=== PATIENT | female | born 1990 | race African-American/Black ===

== ENCOUNTER 2021-08-22 21:21 | Emergency (ER) | payer OTHER ==
[~2021-08-22] VITALS: Ht 160 cm; Wt 71.2 kg
[2021-08-23 00:18] VITALS: BP 121/75; TEMP 98.5
== END 2021-08-23 00:18 | disposition home or self-care (01) ==
LOC: ED 21:21
DX: R51.9 Headache, unspecified (principal); I10 Essential (primary) hypertension
CPT/HCPCS: 36415; 81025; 96372; 99283; J1885

== ENCOUNTER 2022-03-29 14:03 | Outpatient (CLI) | payer OTHER ==
[2022-03-29 14:25] LABS: PLATELET COUNT 205 K/uL (152-353)
[2022-03-29 14:34] LABS: POTASSIUM 3.8 mmol/L (3.6-5.2)
== END 2022-03-29 19:03 | disposition home or self-care (01) ==
LOC: RESP 14:03
PROVIDERS: ATTEND Nurse Practitioner Family
DX: R07.89 Other chest pain (principal)
CPT/HCPCS: 36415; 80053; 82553; 84484; 85027; 85379; 93005

== ENCOUNTER 2023-03-27 10:08 | Emergency (ER) | payer OTHER ==
[~2023-03-27] VITALS: Ht 160 cm; Wt 48.1 kg
[2023-03-27 10:20] VITALS: TEMP 98.5
[2023-03-27 11:14] LABS: PLATELET COUNT 210 K/uL (152-353)
[2023-03-27 11:22] LABS: POTASSIUM 3.6 mmol/L (3.6-5.2)
[2023-03-27 12:38] VITALS: BP 132/98
== END 2023-03-27 12:38 | disposition home or self-care (01) ==
LOC: ED 10:08
PROVIDERS: Family Medicine
DX: M54.2 Cervicalgia (principal)
CPT/HCPCS: 80053; 81025; 85027; 87635; 87651; 99283; J1100; J1885; U0003

== ENCOUNTER 2023-03-30 11:40 | Emergency (ER) | payer OTHER ==
[~2023-03-30] VITALS: Ht 152.4 cm; Wt 63.5 kg
[2023-03-30 11:40] VITALS: BP 155/100; TEMP 98.1
== END 2023-03-30 15:35 | disposition home or self-care (01) ==
LOC: ED 11:40
DX: G43.909 Migraine, unspecified, not intractable, without status migrainosus (principal)
CPT/HCPCS: 96361; 96374; 96375; 99284; J1885; J2405